=== PATIENT | female | born 1995 | race Caucasian/White ===

== ENCOUNTER 2019-10-12 12:43 | Emergency (ER) | payer BC, OTHER ==
[2019-10-12] MEDS ORDERED: TETANUS/DIPHTHERIA TOXOID [ADULT] 0.5 ML VIAL IM ONE (13:12)
[2019-10-12] MEDS ORDERED: ACETAMINOPHEN ELIXIR 325 MG/10.15ML UDCUP ONE (13:19)
[2019-10-12] MEDS ORDERED: OCTYL 2-CYANOACRYLATE 1 EACH TP ONE (13:45)
[2019-10-12] MEDS ORDERED: LIDOCAINE HCL 1% 20 ML VIAL ONE (13:46)
[2019-10-12] MEDS ORDERED: NEOMY SULF/BACITRA/POLYMYXIN B 1 EACH PACKET TP ONE (14:04)
== END 2019-10-12 14:11 | disposition home or self-care (01) ==
LOC: EDH 12:43
DX: S61.412A Laceration without foreign body of left hand, initial encounter (principal); W54.0XXA Bitten by dog, initial encounter; Y93.89 Activity, other specified; Y92.89 Other specified places as the place of occurrence of the external cause; Y99.8 Other external cause status
CPT/HCPCS: 12001; 73130; 90471; 90714